=== PATIENT | female | born 1960 | race Caucasian/White ===

== ENCOUNTER 2023-08-23 13:44 | Day surgery (SDC) | payer BC ==
[2023-08-23] MEDS: LACTATED RINGERS 1,000 ML IV ONE (14:15)
[2023-08-23 14:43] VITALS: TEMP 97
[2023-08-23] MEDS ORDERED: PROPOFOL 10 MG/ML 20 ML VIAL IV ONE (15:13)
--- NOTE | 2023-08-23 15:31 | P.PCN ---
Date of Procedure: 08/23/23 Procedure(s) Performed: BRIEF HISTORY: Patient is a 63-year-old pleasant White female scheduled for an elective colonoscopy as a part of Evaluation of long-standing history of ulcerative colitis Diagnosed at age 44. She is on no maintenance medications. Lately has been having 3-4 loose watery bowel movements daily with no blood in the stool. PROCEDURE PERFORMED: Colonoscopy With random biopsies. PREOPERATIVE DIAGNOSIS: Long-standing history of ulcerative colitis IV sedation per Anesthesia. PROCEDURE: After informed consent was obtained, the patient, was brought into the endoscopy unit. IV sedation was administered by Anesthesia under continuous monitoring. Digital rectal examination was normal. Initially the Olympus CF-160 flexible video colonoscope was then inserted in the rectum, gradually advanced into the cecum without any difficulty. Careful examination was performed as the scope was gradually being withdrawn. Ileocecal valve and the appendiceal orifice were visualized and appeared normal. Prep was excellent.Terminal ileum was intubated and 20 cm visualized and appeared normal. Mucosa of the cecum, ascending colon, transverse colon, descending colon, sigmoid colon, and rectum appeared normal.And biopsies were done from cecum to rectum at every 10 cm intervell. Retroflexion was performed in the rectum and no lesions were seen. The patient tolerated the procedure well. IMPRESSION: Normal-appearing colon from rectum to cecum With no evidence of active colitis or colorectal neoplasia. RECOMMENDATIONS: Findings of this examination were discussed with the patient As well as a family. She was advised to follow with the biopsy results. Continue Bentyl 10 mg 4 times daily and follow up in office in 3-4 weeks..
[2023-08-23 15:54] VITALS: BP 135/76; PULSE 72; RESP 14
== END 2023-08-23 15:58 | disposition home or self-care (01) ==
LOC: ORWHC2ENDO 13:44
PROVIDERS: ATTEND Internal Medicine Gastroenterology
DX: K51.90 Ulcerative colitis, unspecified, without complications (principal); E78.5 Hyperlipidemia, unspecified; K21.9 Gastro-esophageal reflux disease without esophagitis; F12.90 Cannabis use, unspecified, uncomplicated; F17.210 Nicotine dependence, cigarettes, uncomplicated; Z79.899 Other long term (current) drug therapy
CPT/HCPCS: 45380; J2704; 88305